=== PATIENT | male | born 1985 | race Caucasian/White ===

== ENCOUNTER 2019-10-03 09:08 | Emergency (ER) | payer OTHER ==
[~2019-10-03] VITALS: Ht 177.8 cm; Wt 72.6 kg
[2019-10-03 09:17] VITALS: BP 128/84
--- NOTE | 2019-10-03 09:21 | NUR ---
PATIENT AMBULATED TO BED 12.
[2019-10-03] MEDS ORDERED: SULFAMETH/TRIMETH 400/80MG 1 TAB PO ONE (09:30)
[2019-10-03] MEDS ORDERED: KETOROLAC 30 MG/ML VIAL IM ONE (09:30)
[2019-10-03] MEDS ORDERED: SILVER SULFADIAZINE 1% 50 GM JAR TP ONE (09:30)
[2019-10-03] MEDS ORDERED: cephALEXin 500 MG CAP PO ONE (09:30)
--- NOTE | 2019-10-03 09:50 | NUR ---
applied silverdene cream to affected area of left axilla---followed by xeroform dressing and non adhesive gauze and kept in place by kerlix wrap.---pt thankful tolerated wrapping with minimal discomfort as stated by pt.
[2019-10-03 10:09] VITALS: BP 135/89
== END 2019-10-03 10:09 | disposition home or self-care (01) ==
LOC: MED 09:08
DX: S49.92XA Unspecified injury of left shoulder and upper arm, initial encounter (principal); X58.XXXA Exposure to other specified factors, initial encounter; Y93.31 Activity, mountain climbing, rock climbing and wall climbing; Y92.89 Other specified places as the place of occurrence of the external cause; Y99.8 Other external cause status
CPT/HCPCS: 96372; 99284; J1885

== ENCOUNTER 2020-04-03 13:16 | Emergency (ER) | payer MEDICAID, OTHER ==
[~2020-04-03] VITALS: Ht 177.8 cm; Wt 74.8 kg
[2020-04-03 13:26] VITALS: BP 110/68
[2020-04-03] MEDS ORDERED: IBUPROFEN 800 MG TAB PO ONE (13:40)
--- NOTE | 2020-04-03 13:48 | NUR ---
PT STATES HIS ELBOW WAS BITTEN BY SPIDER x5 DAYS AGO, BEGAN TO GET MORE SWOLLEN AND THROB WITH PAIN. NO PMH NKA
--- NOTE | 2020-04-03 13:49 | NUR ---
ABRAHAN SUTTON AT PT BEDSIDE.
[2020-04-03 13:53] VITALS: BP 110/68
--- NOTE | 2020-04-03 13:54 | NUR ---
Patient discharged with v/s stable. Written and verbal after care instructions given and explained. Patient alert, oriented and verbalized understanding of instructions. Ambulatory with steady gait. All questions addressed prior to discharge. ID band removed. Patient advised to follow up with PMD. Rx of IBUPROFEN 600MG TID PO, AND CEPHALEXIN 500MG QID PO given. Patient educated on indication of medication including possible reaction and side effects. Opportunity to ask questions provided and answered.
== END 2020-04-03 13:54 | disposition home or self-care (01) ==
LOC: MED 13:16
DX: L03.116 Cellulitis of left lower limb (principal); F17.210 Nicotine dependence, cigarettes, uncomplicated; Z71.6 Tobacco abuse counseling
CPT/HCPCS: 99283

== ENCOUNTER 2020-04-14 10:30 | Emergency (ER) | payer MEDICAID ==
[~2020-04-14] VITALS: Ht 177.8 cm; Wt 73.5 kg
[2020-04-14 10:35] VITALS: BP 114/68
--- NOTE | 2020-04-14 10:35 | NUR ---
Patient ambulated to bed 4 with steady/even gait.
--- NOTE | 2020-04-14 10:55 | NUR ---
34 y/o M BIB self from home with c/c Left elbow pain. Patient presents A&Ox4, ambulatory and states he was seen at [facility] 1.5 weeks ago for a skin infection. Pt was discharged with antibiotics treatment, completed the treatment two days ago and states the pain worsen. Pt states 8/10, throbbing/pressure-like pain that is constant, non-radiating, and worsens upon movement. Pt states he ran out of prescribed Ibuprofen two days ago and did not take any medications for pain prior to arrival. Pt noted with swelling and redness to left elbow. (+) CMS. 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 Denies any other street drugs or alcohol use. Pt denies fever, N/V, any other types of pain/complaints. Pt placed onto radiographer cardiac catheterization. Respirations even/unlabored. Bed locked in lowest position, side rails x 1. PMH/Meds: Denies NKA
--- NOTE | 2020-04-14 11:17 | NUR ---
Dr. Houston is evaluating patient at bedside.
--- NOTE | 2020-04-14 11:19 | NUR ---
Dr. Houston is at bedside with ultrasound machine.
--- NOTE | 2020-04-14 11:28 | NUR ---
Received consent from patient to call Jameson (friend) via telephone to bring patient's phone. met with Jameson in [facility] and received phone. Handed phone to patient at bedside.
[2020-04-14] MEDS ORDERED: IBUPROFEN 800 MG TAB PO ONE (11:30)
[2020-04-14] MEDS ORDERED: CLINDAMYCIN 150 MG CAP PO ONE (11:30)
[2020-04-14] MEDS ORDERED: IBUP-2218 PO (11:48)
[2020-04-14] MEDS ORDERED: CLIN-178 PO (11:48)
[2020-04-14 11:56] VITALS: BP 118/72
--- NOTE | 2020-04-14 11:56 | NUR ---
Patient discharged with v/s stable. Written and verbal after care instructions given and explained. Patient alert, oriented and verbalized understanding of instructions. Ambulatory with steady gait. All questions addressed prior to discharge. ID band removed. Patient advised to follow up with PMD. Rx of Clindamycin, Ibuprofen given. Patient educated on indication of medication including possible reaction and side effects. Opportunity to ask questions provided and answered.
== END 2020-04-14 11:56 | disposition home or self-care (01) ==
LOC: MED 10:30
DX: L03.114 Cellulitis of left upper limb (principal); M70.22 Olecranon bursitis, left elbow; Y93.89 Activity, other specified; Z79.899 Other long term (current) drug therapy
CPT/HCPCS: 99283

== ENCOUNTER 2021-08-20 21:09 | Emergency (ER) | payer MEDICAID ==
[~2021-08-20] VITALS: Ht 177.8 cm; Wt 70.3 kg
[~2021-08-20 21:09] MED LIST: CLIN300C52 PO; IBUP-2218 PO
--- NOTE | 2021-08-20 21:09 | NUR ---
Sandeep stallings in [facility] - 08/20/21 at 2113 by OBDULIA PT BIBA BLS AND TAKEN TO BED AT THIS TIME
[2021-08-20 21:27] VITALS: BP 130/77
--- NOTE | 2021-08-20 21:34 | NUR ---
TO LOBBY FOLLOWING TRIAGE
[2021-08-20] MEDS ORDERED: KETOROLAC 60 MG/2 ML VIAL IM ONE (23:25)
--- NOTE | 2021-08-20 23:40 | NUR ---
TO BED 6 FOLLOWING XRAY
--- NOTE | 2021-08-21 00:30 | NUR ---
35/M BIB SELF C/C BACK PAIN. PER PATIENT "I PULLED SOMETHING. IT HAS GOTTEN WORSE AND WORSE. IT HAPPENED OVER A MONTH AGO. IT'S MY SCIATIC" PATIENT C/O 11/19 PAIN, AND IS CURRENTLY STATING HE IS HAVING A HARD TIME WALKING. RR EVEN AND UNLABORED. PATIENT AAOX4, AMBULATORY. PATIENT IN BED. BED LOW AND LOCKED. SIDE RAILS UP FOR SAFETY. ALL NEEDS MET
[2021-08-21] MEDS ORDERED: TOR10 PO (00:33)
[2021-08-21] MEDS ORDERED: CYCL10TA33 PO (00:33)
[2021-08-21 01:03] VITALS: BP 128/78
--- NOTE | 2021-08-21 01:03 | NUR ---
Patient discharged with v/s stable. Written and verbal after care instructions given and explained. Patient alert, oriented and verbalized understanding of instructions. Ambulatory with steady gait. All questions addressed prior to discharge. ID band removed. Patient advised to follow up with PMD. Rx of KEOROLAC TROMETHAMINE, AND CYCLOBENZAPRINE given.
--- NOTE | 2021-08-21 01:05 | NUR ---
Chart checked and completed.
== END 2021-08-21 01:03 | disposition home or self-care (01) ==
LOC: MED 21:09
DX: G89.29 Other chronic pain (principal); M54.50 Low back pain, unspecified; F12.90 Cannabis use, unspecified, uncomplicated; Z79.899 Other long term (current) drug therapy
CPT/HCPCS: 72110; 96372; 99283; J1885

== ENCOUNTER 2022-01-29 02:03 | Emergency (ER) | payer MEDICAID ==
[~2022-01-29] VITALS: Ht 177.8 cm; Wt 68.0 kg
[~2022-01-29 02:03] MED LIST changes: +CYCL10TA33 PO; +TOR10 PO
[2022-01-29 02:23] VITALS: BP 142/83
--- NOTE | 2022-01-29 02:29 | NUR ---
TO LOBBY FOLLOWING TRIAGE
--- NOTE | 2022-01-29 05:15 | NUR ---
PT TAKEN TO BED 8
--- NOTE | 2022-01-29 05:19 | NUR ---
Dr. Chow examining patient.
[2022-01-29] MEDS ORDERED: SULF-59 PO (05:24)
--- NOTE | 2022-01-29 05:39 | NUR ---
Patient discharged with v/s stable. Written and verbal after care instructions given and explained. Patient verbalized understanding. Ambulatory with steady gait. All questions addressed prior to discharge. Advised to follow up with PMD.
--- NOTE | 2022-01-29 05:40 | NUR ---
The patient's care was reviewed and supervised by Merle Flores RN.
== END 2022-01-29 05:39 | disposition home or self-care (01) ==
LOC: MED 02:03
DX: L01.00 Impetigo, unspecified (principal); F17.210 Nicotine dependence, cigarettes, uncomplicated; F12.90 Cannabis use, unspecified, uncomplicated; Z79.899 Other long term (current) drug therapy
CPT/HCPCS: 99283

== ENCOUNTER 2022-03-24 16:24 | Emergency (ER) | payer MEDICAID ==
[~2022-03-24] VITALS: Ht 177.8 cm; Wt 72.1 kg
[~2022-03-24 16:24] MED LIST changes: +SULF-59 PO
[2022-03-24 16:34] VITALS: BP 158/81
--- NOTE | 2022-03-24 16:49 | NUR ---
PT AMB TO BED 8
[2022-03-24] MEDS ORDERED: SULFAMETH/TRIMETH DS 800/160MG 1 TAB PO ONE (16:55)
[2022-03-24] MEDS ORDERED: SULF-59 PO (16:55)
[2022-03-24] MEDS ORDERED: IBUP-2218 PO (16:55)
[2022-03-24] MEDS ORDERED: HYDROcodone/APAP 5/325 MG 1 TAB TAB PO ONE (16:55)
--- NOTE | 2022-03-24 17:00 | NUR ---
31YO MALE PT C/O THROBBING R INDEX PAIN AND CELLULITIS XYESTERDAY. STATES MILD NAUSEA. FINGER PRESENTS SWOLLEN -NUMBING OR LOSS OF SENSATION. STATES MILD RELIEF AFTER NAPROXEN. DENIES V/D, FEVER OR CHILLS. PT AAOX4, IN VISIBLE DISCOMFORT. HOB POSITIONED PER COMFORT. HX: DENIES NKA
--- NOTE | 2022-03-24 17:15 | NUR ---
36/M PRESENTS TO ED WITH C/O RIGHT HAND PAIN AND SWELLING X2 DAYS, SWELLING NOTED TO HAND AND FINGERS, STATES PAIN RADIATING UP ARM. DENIES RECENT INJURY OR TRAUMA, DENIES TAKING MEDS FOR SYMPTOMS.
--- NOTE | 2022-03-24 17:43 | NUR ---
Patient discharged with v/s stable. Written and verbal after care instructions FOR CELLULIgiven and explained. Patient alert, oriented and verbalized understanding of instructions. Ambulatory with steady gait. All questions addressed prior to discharge. ID band removed. Patient advised to follow up with PMD. Rx of IBUPROFEN AND BACTRIM DS TAB given. Opportunity to ask questions provided and answered.
--- NOTE | 2022-03-24 18:00 | NUR ---
The patient's care was reviewed and supervised by Shala Valdovinos RN.
== END 2022-03-24 17:43 | disposition home or self-care (01) ==
LOC: MED 16:24
DX: L03.011 Cellulitis of right finger (principal); Z79.899 Other long term (current) drug therapy
CPT/HCPCS: 99283

== ENCOUNTER 2022-04-03 20:06 | Emergency (ER) | payer MEDICAID ==
[~2022-04-03] VITALS: Ht 177.8 cm; Wt 70.8 kg
[2022-04-03 20:19] VITALS: BP 155/89
--- NOTE | 2022-04-03 21:35 | NUR ---
Dr. Palmer examining patient,
[2022-04-03] MEDS ORDERED: SULF-59 PO (21:46)
[2022-04-03 21:58] VITALS: BP 155/89
--- NOTE | 2022-04-03 21:58 | NUR ---
Patient discharged with v/s stable. Written and verbal after care instructions given and explained. Patient alert, oriented and verbalized understanding of instructions. Ambulatory with steady gait. All questions addressed prior to discharge. ID band removed. Patient advised to follow up with PMD. Rx of Bactrim DS given. Patient educated on indication of medication including possible reaction and side effects. Opportunity to ask questions provided and answered.
== END 2022-04-03 21:58 | disposition home or self-care (01) ==
LOC: MED 20:06
DX: L03.011 Cellulitis of right finger (principal); Z79.2 Long term (current) use of antibiotics; Z79.1 Long term (current) use of non-steroidal anti-inflammatories (NSAID); Z79.899 Other long term (current) drug therapy
CPT/HCPCS: 99283

== ENCOUNTER 2022-06-07 20:06 | Emergency (ER) | payer MEDICAID ==
[~2022-06-07] VITALS: Ht 177.8 cm; Wt 68.0 kg
[2022-06-07 20:54] VITALS: BP 152/71
[2022-06-08] MEDS ORDERED: KETOROLAC 60 MG/2 ML VIAL IM ONE (00:20)
[2022-06-08] MEDS ORDERED: IBUPROFEN 600 MG TAB ONE (00:27)
--- NOTE | 2022-06-08 00:28 | NUR ---
PT REFUSED TORADOL STATES HE DOESNT LIKE NEEDLES, PT ASKED FOR PILL FORM MEDICATION, MADE AWARE. TORADOL DRAWN UP AND WASTED AT BEDSIDE
[2022-06-08 00:29] VITALS: BP 152/71
[2022-06-08] MEDS ORDERED: IBUPROFEN 600 MG TAB PO ONE (00:30)
== END 2022-06-08 00:29 | disposition home or self-care (01) ==
LOC: MED 20:06
DX: S33.5XXA Sprain of ligaments of lumbar spine, initial encounter (principal); F12.90 Cannabis use, unspecified, uncomplicated; F17.210 Nicotine dependence, cigarettes, uncomplicated; Z79.899 Other long term (current) drug therapy; X58.XXXA Exposure to other specified factors, initial encounter; Y93.89 Activity, other specified; Y92.89 Other specified places as the place of occurrence of the external cause; Y99.8 Other external cause status
CPT/HCPCS: 99282; J1885

== ENCOUNTER 2022-12-08 01:46 | Emergency (ER) | payer MEDICAID ==
[~2022-12-08] VITALS: Ht 177.8 cm; Wt 70.3 kg
[2022-12-08 01:55] VITALS: BP 134/105; PULSE 91; RESP 17; TEMP 97.8; O2SAT 97
[2022-12-08] MEDS ORDERED: VANCOMYCIN 1,000 MG in DEXTROSE 5% 250 ML IV ONE (02:10)
[2022-12-08] MEDS ORDERED: VANCOMYCIN 1,000 MG VIAL ONE (02:17)
[2022-12-08] MEDS ORDERED: SULF-59 PO (04:53)
[2022-12-08] MEDS ORDERED: IBUPROFEN 600 MG TAB PO ONE (05:15)
== END 2022-12-08 05:05 | disposition home or self-care (01) ==
LOC: MED 01:46
DX: A49.02 Methicillin resistant Staphylococcus aureus infection, unspecified site (principal); Z79.899 Other long term (current) drug therapy
CPT/HCPCS: 36415; 87040; 96365; 96366; 99284; J3370

== ENCOUNTER 2023-02-16 14:31 | Emergency (ER) | payer MEDICAID ==
[~2023-02-16] VITALS: Ht 177.8 cm; Wt 68.0 kg
[2023-02-16 15:20] VITALS: BP 137/84; PULSE 106; RESP 20; TEMP 97.9; O2SAT 100
[2023-02-16] MEDS ORDERED: SULF-58 PO (15:52)
[2023-02-16] MEDS ORDERED: CEPH-588 PO (15:53)
[2023-02-16 16:08] VITALS: BP 137/84; PULSE 106; RESP 20; TEMP 97.9; O2SAT 100
== END 2023-02-16 16:07 | disposition left against medical advice (07) ==
LOC: MED 14:31
DX: L03.114 Cellulitis of left upper limb (principal); F19.10 Other psychoactive substance abuse, uncomplicated; Z79.899 Other long term (current) drug therapy
CPT/HCPCS: 99283